=== PATIENT | male | born 1950 | race Caucasian/White ===

== ENCOUNTER 2020-10-05 05:59 | Outpatient (RCR) | payer BC, MEDICARE ==
[~2020-10-05] VITALS: Ht 185.5 cm; Wt 90.8 kg
[~2020-10-05 05:59] MED LIST: ASPI-892 PO; Atorvastatin Calcium PO; CARV3.12T PO; CLPD75T PO; FENO134C2 PO; Famotidine PO; GEMF600T3 PO; GLIP10TA13 PO; LIRA0.6P3 SC; LISI1TAB78 PO; LORA10CA PO; NITR12SP6 SL; RABE20TA27 PO; VARD20TA30 PO
== END 2020-10-05 14:08 | disposition home or self-care (01) ==
LOC: PREOP 05:59
PROVIDERS: ATTEND Surgery
DX: Z01.812 Encounter for preprocedural laboratory examination (principal); Z12.11 Encounter for screening for malignant neoplasm of colon; Z20.822 Contact with and (suspected) exposure to COVID-19; Z80.0 Family history of malignant neoplasm of digestive organs
CPT/HCPCS: 87635

== ENCOUNTER 2020-10-07 08:52 | Day surgery (SDC) | payer MEDICARE, OTHER ==
[2020-10-07] VITALS (7 sets, daily range): BP systolic 82–160; BP diastolic 56–84
[~2020-10-07] VITALS: Ht 185.5 cm; Wt 90.8 kg
[2020-10-07] MEDS ORDERED: LACTATED RINGERS 1,000 ML IV STA (09:05)
[2020-10-07] MEDS ORDERED: LACTATED RINGERS 1,000 ML IV ONE (09:05)
[2020-10-07] MEDS ORDERED: LIDOCAINE JELLY 2% 6 ML SYRINGE MM PRN (09:15)
[2020-10-07] MEDS ORDERED: MIDAZOLAM 2 MG/2 ML (VERSED) VIAL ONE (09:19)
[2020-10-07] MEDS ORDERED: PROPOFOL INJECTION 50 ML IV ONE (09:19)
[2020-10-07] MEDS ORDERED: LIDOCAINE JELLY 2% 6 ML SYRINGE ONE (10:06)
--- NOTE | 2020-10-07 10:14 | Progress Note-Pre Operative ---
Pre-Operative Progress Note H&P Reviewed The H&P was reviewed, patient examined and no changes noted. Date Seen by Provider: Oct 07, 2020 Time Seen by Provider: 10:00 Date H&P Reviewed: Oct 07, 2020 Time H&P Reviewed: 10:00 Pre-Operative Diagnosis: screening, family hx colon ca MARIA DEL CARMEN CHURCH MD Oct 07, 2020 10:14
[2020-10-07] MEDS ORDERED: HYDROcodone/APAP 5 MG/325 MG (LORTAB) TAB PO PRN (10:15)
[2020-10-07] MEDS ORDERED: ACETAMINOPHEN 325 MG TABLET PO PRN (10:15)
[2020-10-07] MEDS ORDERED: ONDANSETRON 4 MG/2 ML (SDV) Z0FRAN IVP PRN (10:15)
[2020-10-07] MEDS ORDERED: morphine INJ 10 MG/ML 1ML (SYR OR VIAL) IVP PRN ×2 (10:15)
--- NOTE | 2020-10-07 10:15 | Discharge Inst-Surgical ---
D/C Lap Instructions-LYNNETTE Follow Up Activity as tolerated High Fiber Diet 25g or more per day Avoid Alcohol, Caffeine, Spicy [place] and Acid foods. Drink 64 fluid oz or more of fluids per day. Symptoms to Report: Fever over 101 degree F, Nausea/Vomiting If any problems/questions: Contact your physician or go to Emergency Room MARIA DEL CARMEN CHURCH MD Oct 07, 2020 10:15
--- NOTE | 2020-10-07 10:55 | Anesthesia-General Post-Op ---
MAC Patient Condition Mental Status/LOC: Same as Preop Cardiovascular: Satisfactory Nausea/Vomiting: Absent Respiratory: Satisfactory Pain: Controlled Complications: Absent Post Op Complications Complications None Follow Up Care/Instructions Patient Instructions None needed. Anesthesiology Discharge Order Discharge Order Patient is doing well, no complaints, stable vital signs, no apparent adverse anesthesia problems. No complications reported per nursing. WILY THOMPSON CRNA Oct 07, 2020 10:55
--- NOTE | 2020-10-07 11:02 | Progress Note-Post Operative ---
Post-Operative Progess Note Surgeon (s)/Studio Manager (s) Surgeon MARIA DEL CARMEN CHURCH MD Studio Manager: none Pre-Operative Diagnosis screening, family hx colon ca Post-Operative Diagnosis mild chronic stage 2 ext and int hemorrhoids, mild sigmoid diverticulosis. Procedure & Operative Findings Date of Procedure 10/07/20 Procedure Performed/Findings colonoscopy Anesthesia Type mac Estimated Blood Loss Estimated blood loss (mL): minimal Specimens/Packing Specimens Removed none MARIA DEL CARMEN CHURCH MD Oct 07, 2020 11:02
--- NOTE | 2020-10-07 17:01 | OPERATIVE REPORT ---
DATE OF SERVICE: 10/07/2020 ATTENDING PRIMARY MOBILE PAINT SPECIALIST: Naty Branch APRN. PREOPERATIVE DIAGNOSIS: Screening colonoscopy with family history of colon cancer. POSTOPERATIVE DIAGNOSES: Mild chronic stage II external and internal hemorrhoids, mild sigmoid diverticulosis. PROCEDURE PERFORMED: Colonoscopy. SURGEON: Maria Del Carmen Church MD. ANESTHESIA: Monitored anesthesia care. ESTIMATED BLOOD LOSS: Minimal. FINDINGS: Mild chronic stage II external and internal hemorrhoids, mild sigmoid diverticulosis. DISPOSITION: The patient tolerated the procedure well. INDICATIONS FOR PROCEDURE: The patient is a 69-year-old male in need of a screening colonoscopy. He states that he is doing well and does not report any major issues with diarrhea nor constipation as well as no red blood per rectum nor any dark tarry stools. He does have a family history of colon cancer with his mother having the disease. DESCRIPTION OF PROCEDURE: The patient was brought to the endoscopy suite and laid in the left lateral decubitus position. After adequate IV pain and sedative medications and monitored anesthesia care. A digital rectal examination was performed, which revealed mild chronic stage II external and internal hemorrhoids, not actively edematous nor inflamed and no bleeding. Normal suture tone was felt and there were no palpable masses. Prostate gland was palpable and appeared normal. The endoscope was then intubated to the anus and rectum gently insufflated. The endoscope was then advanced to the valves of [place] of the rectum with no polyps or any neoplasms identified. The endoscope was then advanced through the sigmoid colon, where a mild sigmoid diverticulosis was identified. The endoscope was then advanced in the mid of the descending, transverse and ascending colon to the cecum. These segments were normal. There were no polyps or any neoplasms identified throughout the colon or rectum. Endoscope was then slowly withdrawn while taking a second look and suctioning of residual air with no additional findings. The patient tolerated the procedure well. We will recommend continued medical management with a high fiber diet with at least 30 grams of fiber daily as well as significant amounts of water to promote soft stools on a daily basis. Due to his first-degree family history of colon cancer, we will recommend a followup colonoscopy approximately every five years. Job ID: [id number] DocumentID: [id number] Dictated Date: 10/07/2020 10:46:59 Tool Supervisor Date: 10/07/2020 17:00:56 Dictated By: MARIA DEL CARMEN CHURCH MD
== END 2020-10-07 11:35 | disposition home or self-care (01) ==
LOC: ENDO 08:52
PROVIDERS: ATTEND Surgery
DX: Z12.11 Encounter for screening for malignant neoplasm of colon (principal); K64.1 Second degree hemorrhoids; K57.30 Diverticulosis of large intestine without perforation or abscess without bleeding; I10 Essential (primary) hypertension; I25.10 Atherosclerotic heart disease of native coronary artery without angina pectoris; E11.9 Type 2 diabetes mellitus without complications; K21.9 Gastro-esophageal reflux disease without esophagitis; Z79.899 Other long term (current) drug therapy; Z95.5 Presence of coronary angioplasty implant and graft; Z80.0 Family history of malignant neoplasm of digestive organs
CPT/HCPCS: 82962; G0105

== ENCOUNTER 2021-01-15 16:11 | Emergency (ER) | payer MEDICARE, OTHER ==
[~2021-01-15] VITALS: Ht 185 cm; Wt 100.0 kg
[2021-01-15] MEDS ORDERED: KETOROLAC 30 MG/ML VIAL IVP ONE (16:30)
[2021-01-15] MEDS ORDERED: NS IV 1000 ML 1,000 ML IV SCH (16:30)
[2021-01-15] MEDS ORDERED: fentaNYL INJ 100 MCG/2 ML AMP IVP ONE (16:30)
--- NOTE | 2021-01-15 16:30 | ED GU-Male ---
General Chief Complaint: Abdominal/GI Problems Stated Complaint: ABD/BACK PAIN POSSIBLE KIDNEY STONE Source: patient Exam Limitations: no limitations History of Present Illness Date Seen by Provider: January 15, 2021 Time Seen by Provider: 16:29 Initial Comments To ER with suprapubic abdominal pain sudden onset about 2 PM today. He also had some left flank pain. He felt the urge to urinate but was unable to do so. History of kidney stone on the left side a couple years ago. Timing/Duration: just prior to arrival Severity/Quality: moderate Location: suprapubic, left flank Radiation: none Activities at Onset: none Prior Genitourinary Problems: none Allergies and Home Medications Allergies Coded Allergies: No Known Drug Allergies (Unverified , 12/27/10) Home Medications Carvedilol 3.125 Mg Tablet, 6.25 MG PO BID Prescribed by: JOHANNA AL on 11/14/142018 Cefuroxime Axetil 250 Mg Tablet, 250 MG PO BID Prescribed by: JANE INTERIANO on 01/15/211656 Fenofibrate,Micronized 134 Mg Capsule, 134 MG PO HS Prescribed by: JOHANNA AL on 11/14/142018 Glipizide 10 Mg Tablet, 20 MG PO BID, (Reported) TAKES 2 (10MG) TABLETS Ibuprofen 800 Mg Tablet, 800 MG PO Q8H PRN for PAIN Prescribed by: JANE INTERIANO on 01/15/211656 Lisinopril/Hydrochlorothiazide 1 Tab Tablet, 1 TAB PO DAILY, (Reported) Loratadine 10 Mg Capsule, 10 MG PO DAILY, (Reported) Nitroglycerin 12 Gm Hitchcock, 12 GM SL NEEDED PRN for CHEST PAIN one sublingual spray q 5 minutes prn chest pain. Prescribed by: JOHANNA AL on 11/14/142010 Ondansetron 8 Mg Tab.rapdis, 8 MG PO Q6H PRN for NAUSEA/VOMITING Prescribed by: JANE INTERIANO on 01/15/211656 Oxycodone HCl/Acetaminophen 1 Each Tablet, 1 TAB PO Q4H Prescribed by: JANE INTERIANO on 01/15/211657 Rabeprazole Sodium 20 Mg Tablet.dr, 20 MG PO DAILY, (Reported) Tamsulosin HCl 0.4 Mg Cap, 0.4 MG PO DAILY Prescribed by: JANE INTERIANO on 01/15/211656 [Atorvastatin Calcium] 80 MG TABLET, 80 MG PO HS Prescribed by: JOHANNA AL on 11/14/142018 [Famotidine] 20 MG TABLET, 20 MG PO BID Prescribed by: JOHANNA AL on 11/14/142018 Patient Home Medication List Home Medication List Reviewed: Yes Review of Systems Review of Systems Constitutional: see HPI EENTM: see HPI Respiratory: no symptoms reported Cardiovascular: no symptoms reported Genitourinary: see HPI, flank pain Musculoskeletal: no symptoms reported Skin: no symptoms reported Psychiatric/Neurological: No Symptoms Reported Endocrine: No Symptoms Reported Hematologic/Lymphatic: No Symptoms Reported Past Stctdiy-Oaymcu-Jpcnwf Hx Patient Social History 2nd Hand Smoke Exposure: No Recent Hopitalizations: No Immunizations Up To Date Tetanus Booster (TDap): More than 5yrs PED Vaccines UTD: No Date of Pneumonia Vaccine: Nov 12, 2014 Date of Influenza Vaccine: Jun 09, 2020 Seasonal Allergies Seasonal Allergies: No Past Medical History Surgeries: Yes (HEART STENTS) Eye Surgery, Prostatectomy Respiratory: No Cardiac: Yes Coronary Artery Disease, High Cholesterol, Hypertension Neurological: No Reproductive Disorders: No Sexually Transmitted Disease: No HIV/AIDS: No Gastrointestinal: Yes Gastroesophageal Reflux Musculoskeletal: No Endocrine: Yes Diabetes, Non-Insulin dep Cancer: Yes Prostate Psychosocial: No Integumentary: No Blood Disorders: No Adverse Reaction/Blood Tranf: No Family Medical History Arthritis 19 MOTHER, Onset:60 years & older Cardiovascular disease 19 MOTHER, Onset:60 years & older Colon cancer Completed stroke G8 BROTHER, Onset:50's - 60 (Brother from stroke) Hypertension 19 MOTHER, Onset:60 years & older Prostate cancer 19 FATHER, Onset:60 years & older Visual disorder 19 FATHER, Onset:60 years & older (Macular degeneration) CAD Over 55 Years Old Physical Exam Vital Signs Vital Signs - First Documented 01/15/21 01/15/21 16:30 16:58 Temp 36.2 Pulse 80 Resp 16 B/P (MAP) 169/78 (108) Pulse Ox 98 O2 Delivery Room Air Capillary Refill : Height, Weight, BMI Height: 6'1.00" Weight: 251lbs. 9.0oz. [id number]; 26.38 BMI Method: General Appearance: WD/WN, no apparent distress Neck: non-tender, full range of motion Respiratory: no respiratory distress, no accessory muscle use Gastrointestinal: normal bowel sounds, soft, tenderness (Left lower) Neurologic/Psychiatric: alert, normal mood/affect, oriented x 3 Skin: normal color, warm/dry Progress/Results/Core Measures Suspected Sepsis SIRS Temperature: Pulse: Respiratory Rate: Laboratory Tests 01/15/21 16:25: White Blood Count 8.4 Blood Pressure / Mean: Laboratory Tests 01/15/21 16:25: Creatinine 0.93, Platelet Count 209, Total Bilirubin 0.5 Results/Orders Lab Results Laboratory Tests Test 01/15/21 16:25 Range/Units White Blood Count 8.4 4.3-11.0 10^3/uL Red Blood Count 4.69 4.30-5.52 10^6/uL Hemoglobin 15.3 13.3-17.7 g/dL Hematocrit 45 40-54 % Mean Corpuscular Volume 96 80-99 fL Mean Corpuscular Hemoglobin 33 25-34 pg Mean Corpuscular Hemoglobin Concent 34 32-36 g/dL Red Cell Distribution Width 12.6 10.0-14.5 % Platelet Count 209 130-400 10^3/uL Mean Platelet Volume 9.9 9.0-12.2 fL Immature Granulocyte % (Auto) 0 % Neutrophils (%) (Auto) 68 42-75 % Lymphocytes (%) (Auto) 20 12-44 % Monocytes (%) (Auto) 11 0-12 % Eosinophils (%) (Auto) 1 0-10 % Basophils (%) (Auto) 1 0-10 % Neutrophils # (Auto) 5.7 1.8-7.8 10^3/uL Lymphocytes # (Auto) 1.7 1.0-4.0 10^3/uL Monocytes # (Auto) 0.9 0.0-1.0 10^3/uL Eosinophils # (Auto) 0.1 0.0-0.3 10^3/uL Basophils # (Auto) 0.1 0.0-0.1 10^3/uL Immature Granulocyte # (Auto) 0.0 0.0-0.1 10^3/uL Sodium Level 140 135-145 MMOL/L Potassium Level 4.6 3.6-5.0 MMOL/L Chloride Level 103 98-107 MMOL/L Carbon Dioxide Level 27 21-32 MMOL/L Anion Gap 10 5-14 MMOL/L Blood Urea Nitrogen 17 7-18 MG/DL Creatinine 0.93 0.60-1.30 MG/DL Estimat Glomerular Filtration Rate > 60 BUN/Creatinine Ratio 18 Glucose Level 127 H 70-105 MG/DL Calcium Level 9.4 8.5-10.1 MG/DL Corrected Calcium 9.2 8.5-10.1 MG/DL Total Bilirubin 0.5 0.1-1.0 MG/DL Aspartate Amino Transf (AST/SGOT) 20 5-34 U/L Alanine Aminotransferase (ALT/SGPT) 19 0-55 U/L Alkaline Phosphatase 69 40-136 U/L Total Protein 6.9 6.4-8.2 GM/DL Albumin 4.3 3.2-4.5 GM/DL My Orders Orders - JANE INTERIANO APRN Cbc With Automated Diff (01/15/21 16:27) Comprehensive Metabolic Panel (01/15/21 16:27) Ua Culture If Indicated (01/15/21 16:27) Ed Iv/Invasive Line Start (01/15/21 16:27) Ct Abd/Pelvis Wo(Kidney Stone) (01/15/21 16:27) Abdomen/Kub 1view (01/15/21 16:27) Ns Iv 1000 Ml (Sodium Chloride 0.9%) (01/15/21 16:30) Ketorolac Injection (Toradol Injection) (01/15/21 16:30) Fentanyl Inj (Sublimaze Injection) (01/15/21 16:30) Medications Given in ED Current Medications Medications Dose Ordered Sig/Maico Route Start Time Stop Time Status Last Admin Dose Admin Fentanyl Citrate 50 mcg ONCE ONCE IVP 01/15/21 16:30 01/15/21 16:31 DC 01/15/21 16:36 50 MCG Ketorolac Tromethamine 15 mg ONCE ONCE IVP 01/15/21 16:30 01/15/21 16:31 DC 01/15/21 16:36 15 MG Vital Signs/I&O 01/15/21 01/15/21 16:30 16:58 Temp 36.2 36.2 Pulse 80 Resp 16 B/P (MAP) 169/78 (108) Pulse Ox 98 98 O2 Delivery Room Air Capillary Refill : Diagnostic Imaging Diagonstic Imaging: CT Comments NAME: ALTHEA VARGAS [facility] REC#: [id number] PT STATUS: REG ER : 1950 PHYSICIAN: JANE INTERIANO TRIAGE RN ADMIT DATE: 01/15/21/ER Draft Date of Exam:01/15/21 CT ABD/PELVIS WO(KIDNEY STONE) PROCEDURE: CT urinary tract, rule out kidney stone. TECHNIQUE: Multiple contiguous axial images were obtained through the abdomen and pelvis without the use of intravenous contrast. Auto Exposure Controls were utilized during the CT exam to meet ALARA standards for radiation dose reduction. INDICATION: Left flank pain. COMPARISON: 11/14/2007 FINDINGS: Pacer leads are partially visualized. The visualized lung bases are clear. The unenhanced liver, spleen, adrenal glands, pancreas, and gallbladder are unremarkable. Indeterminate hypodensities are identified within the right kidney. These appear to have been present in 2007, though minimally increased in size since that time, including a 1.4 cm hypodensity within the superior pole of the right kidney. A 2.2 cm calculus is noted within the left renal pelvis. Additional 0.7 cm calculus within the inferior pole of the left kidney. There is a 0.5 cm calculus within the left ureterovesicular junction. There is resulting mild left hydroureteronephrosis. The right ureter is unremarkable. Moderate vascular calcifications within the abdominal aorta and its branch vessels without aneurysmal dilatation of the abdominal aorta. The appendix is unremarkable. The urinary bladder is predominantly decompressed though otherwise unremarkable. Mild colonic diverticulosis without CT evidence of diverticulitis. No bowel obstruction or pneumatosis. No significant adenopathy, free air, or free fluid within the abdomen or pelvis. Small fat-containing left inguinal hernia. Scattered osseous degenerative changes without acute osseous abnormality. There is resulting multilevel central canal stenosis within the lower lumbar spine. IMPRESSION: 0.5 cm calculus within the left ureterovesicular junction resulting in mild left hydroureteronephrosis. Additional left-sided renal calculi, including a large 2.2 cm calculus within the left renal pelvis. Indeterminate hypodensities within the right kidney. These have minimally increased in size since 2007 suggesting a nonaggressive process. Additional findings as above. Dictated on workstation # [id number] Dict: 01/15/21 1705 Trans: 01/15/21 1728 [facility] [id number] Interpreted by: TODD PARKER MD Electronically signed by: Departure Impression Primary Impression: Left ureteral stone Disposition: 01 HOME, SELF-CARE Condition: Stable Departure-Patient Inst. Decision time for Depature: 16:30 Referrals: [facility] (PCP) Primary Care Physician LOKESH GARCIA APRN (Family) Primary Care Physician LAURA URBINA MD Patient Instructions: Kidney Stones (DC) Add. Discharge Instructions: 1. Take the medication as directed. Return to ER for any intolerable pain or fevers All discharge instructions reviewed with patient and/or family. Voiced understanding. Scripts Tamsulosin HCl (Flomax) 0.4 Mg Cap 0.4 MG PO DAILY, #10 CAP Prov: JANE INTERIANO APRN 01/15/21 Oxycodone HCl/Acetaminophen (Percocet 5-325 mg Tablet) 1 Each Tablet 1 TAB PO Q4H for PAIN-MODERATE MDD 6 TABS for 7 Days, #20 TAB Prov: JANE INTERIANO APRN 01/15/21 Ibuprofen (Ibuprofen) 800 Mg Tablet 800 MG PO Q8H PRN for PAIN, #30 TAB 0 Refills Prov: JANE INTERIANO APRN 01/15/21 Ondansetron (Ondansetron Odt) 8 Mg Tab.rapdis 8 MG PO Q6H PRN for NAUSEA/VOMITING, #10 TAB Prov: JANE INTERIANO APRN 01/15/21 Cefuroxime Axetil (Cefuroxime) 250 Mg Tablet 250 MG PO BID, #10 TAB Prov: JANE INTERIANO APRN 01/15/21 Copy Copies To 1: LAURA URBINA MD, PETER J APRN January 15, 2021 16:30
[2021-01-15 16:33] LABS: BASOPHILS # (AUTO) 0.1 10^3/uL (0.0-0.1); BASOPHILS % (AUTO) 1 % (0-10); EOSINOPHILS # (AUTO) 0.1 10^3/uL (0.0-0.3); EOSINOPHILS % (AUTO) 1 % (0-10); HEMATOCRIT 45 % (40-54); HEMOGLOBIN 15.3 g/dL (13.3-17.7); LYMPHOCYTES # (AUTO) 1.7 10^3/uL (1.0-4.0); LYMPHOCYTES % (AUTO) 20 % (12-44); MEAN CORPUSCULAR HEMOGLOBIN 33 pg (25-34); MEAN CORPUSCULAR HGB CONC 34 g/dL (32-36); MEAN CORPUSCULAR VOLUME 96 fL (80-99); MEAN PLATELET VOLUME 9.9 fL (9.0-12.2); MONOCYTES # (AUTO) 0.9 10^3/uL (0.0-1.0); MONOCYTES % (AUTO) 11 % (0-12); NEUTROPHILS # (AUTO) 5.7 10^3/uL (1.8-7.8); NEUTROPHILS % (AUTO) 68 % (42-75); PLATELET COUNT 209 10^3/uL (130-400); WHITE BLOOD COUNT 8.4 10^3/uL (4.3-11.0)
[2021-01-15 16:41] LABS: ALBUMIN 4.3 GM/DL (3.2-4.5)
[2021-01-15 16:42] LABS: CHLORIDE 103 MMOL/L (98-107); POTASSIUM 4.6 MMOL/L (3.6-5.0); SODIUM 140 MMOL/L (135-145)
[2021-01-15 16:43] LABS: CALCIUM 9.4 MG/DL (8.5-10.1)
[2021-01-15 16:44] LABS: GLUCOSE 127 MG/DL (70-105); TOTAL PROTEIN 6.9 GM/DL (6.4-8.2)
[2021-01-15 16:45] LABS: CARBON DIOXIDE 27 MMOL/L (21-32)
[2021-01-15 16:46] LABS: BILIRUBIN,TOTAL 0.5 MG/DL (0.1-1.0)
[2021-01-15 16:48] LABS: ALKALINE PHOSPHATASE 69 U/L (40-136); CREATININE SERUM 0.93 MG/DL (0.60-1.30); GFR ESTIMATED > 60
[2021-01-15 16:49] LABS: BUN/CREATININE RATIO 18
[2021-01-15 16:51] LABS: ALANINE AMINOTRANSFERASE 19 U/L (0-55)
[2021-01-15] MEDS ORDERED: CEFU250T80 PO (16:57)
[2021-01-15] MEDS ORDERED: TMSL.4C PO (16:57)
[2021-01-15] MEDS ORDERED: OXYC1TAB87 PO (16:57)
[2021-01-15] MEDS ORDERED: IBUP-1780 PO (16:57)
[2021-01-15] MEDS ORDERED: ONDA8TAB13 PO (16:57)
--- NOTE | 2021-01-15 17:16 | Diagnostic Imaging Report ---
INDICATION: Left flank pain, history of prostate and lung cancer. History of nephrolithiasis. TECHNIQUE: Two supine views of the abdomen, 4:56 p.m. CORRELATION STUDY: CT abdomen and pelvis 01/15/2021. FINDINGS: Large triangular shape 2.4 cm calcification in the left upper quadrant. Additional small calcification of 5 mm potential inferior pole left kidney. No definitive desiccation on the right renal silhouette. 5 mm calcification in the left hemipelvis does correspond to a probable distal left ureteral calcification. Overlying bowel gas pattern is nonobstructive. IMPRESSION: Multiple calcifications over left renal silhouette. Small calcification of the left hemipelvis favors probable distal ureteral stone. Dictated by: Dictated on workstation # [id number]
--- NOTE | 2021-01-15 17:28 | Diagnostic Imaging Report ---
PROCEDURE: CT urinary tract, rule out kidney stone. TECHNIQUE: Multiple contiguous axial images were obtained through the abdomen and pelvis without the use of intravenous contrast. Auto Exposure Controls were utilized during the CT exam to meet ALARA standards for radiation dose reduction. INDICATION: Left flank pain. COMPARISON: 11/14/2007 FINDINGS: Pacer leads are partially visualized. The visualized lung bases are clear. The unenhanced liver, spleen, adrenal glands, pancreas, and gallbladder are unremarkable. Indeterminate hypodensities are identified within the right kidney. These appear to have been present in 2007, though minimally increased in size since that time, including a 1.4 cm hypodensity within the superior pole of the right kidney. A 2.2 cm calculus is noted within the left renal pelvis. Additional 0.7 cm calculus within the inferior pole of the left kidney. There is a 0.5 cm calculus within the left ureterovesicular junction. There is resulting mild left hydroureteronephrosis. The right ureter is unremarkable. Moderate vascular calcifications within the abdominal aorta and its branch vessels without aneurysmal dilatation of the abdominal aorta. The appendix is unremarkable. The urinary bladder is predominantly decompressed though otherwise unremarkable. Mild colonic diverticulosis without CT evidence of diverticulitis. No bowel obstruction or pneumatosis. No significant adenopathy, free air, or free fluid within the abdomen or pelvis. Small fat-containing left inguinal hernia. Scattered osseous degenerative changes without acute osseous abnormality. There is resulting multilevel central canal stenosis within the lower lumbar spine. IMPRESSION: 0.5 cm calculus within the left ureterovesicular junction resulting in mild left hydroureteronephrosis. Additional left-sided renal calculi, including a large 2.2 cm calculus within the left renal pelvis. Indeterminate hypodensities within the right kidney. These have minimally increased in size since 2007 suggesting a nonaggressive process. Additional findings as above. Dictated by: Dictated on workstation # [id number]
[2021-01-15 17:54] LABS: BILIRUBIN,URINE NEGATIVE (NEGATIVE); CLARITY,URINE CLEAR; COLOR,URINE YELLOW; GLUCOSE, URINE (UA) NEGATIVE (NEGATIVE); KETONES,URINE TRACE (NEGATIVE); LEUKOCYTE ESTERASE ,URINE NEGATIVE (NEGATIVE); NITRITE,URINE NEGATIVE (NEGATIVE); PROTEIN,URINE NEGATIVE (NEGATIVE)
[2021-01-15 18:01] LABS: BACTERIA,URINE NEGATIVE /HPF; RBC,URINE >100 /HPF
[2021-01-15 18:02] LABS: SQUAMOUS EPITHELIAL CELL,UR RARE /HPF
[2021-01-15 18:10] VITALS: BP 112/80
== END 2021-01-15 18:10 | disposition home or self-care (01) ==
LOC: EDUNIT# 16:11 → ER 16:12
DX: N13.2 Hydronephrosis with renal and ureteral calculous obstruction (principal); I10 Essential (primary) hypertension; E11.9 Type 2 diabetes mellitus without complications; I25.10 Atherosclerotic heart disease of native coronary artery without angina pectoris; E78.00 Pure hypercholesterolemia, unspecified; K21.9 Gastro-esophageal reflux disease without esophagitis; Z95.5 Presence of coronary angioplasty implant and graft; Z79.84 Long term (current) use of oral hypoglycemic drugs; Z79.899 Other long term (current) drug therapy
CPT/HCPCS: 36415; 74018; 74176; 80053; 81000; 85025

== ENCOUNTER → 2021-01-18 | Outpatient (CLI) | payer MEDICARE, OTHER ==
[~2021-01-18] MED LIST changes: +CEFU250T80 PO; +IBUP-1780 PO; +ONDA8TAB13 PO; +OXYC1TAB87 PO; +TMSL.4C PO
--- NOTE | 2021-01-18 14:08 | Diagnostic Imaging Report ---
Indication: Left renal stone. Time of exam: 1:46 PM Correlation is made with prior radiograph from 3 days earlier. A previously noted calculi overlying the left renal shadow are again noted. It appeared to be in a similar position. The left pelvic calculus is no longer visualized and has likely passed. Right-sided urinary tracts are unremarkable. Bowel gas pattern is unremarkable. IMPRESSION: Stable left renal calculi. Previous noted left pelvic calculus in the expected location of the distal left ureter is no longer visualized, has likely passed. Dictated by: Dictated on workstation # [id number]
== END ==
LOC: RAD 13:25
PROVIDERS: ATTEND Urology
DX: N20.0 Calculus of kidney (principal)
CPT/HCPCS: 74018

== ENCOUNTER 2021-02-22 20:35 | Observation (INO) | payer MEDICARE, OTHER ==
[~2021-02-22] VITALS: Ht 73 cm; Wt 93.0 kg
--- NOTE | 2021-02-22 20:48 | ED General ---
General Stated Complaint: FALL - CHIN LAC Source of Information: Patient Exam Limitations: No Limitations History of Present Illness Date Seen by Provider: Feb 22, 2021 Time Seen by Provider: 20:44 Initial Comments To ER by private vehicle with reports of a chin laceration. Patient states that he took Viagra, they "had some fun" then had some drinks. Then he stood up too quickly and passed out. Laceration to his chin and he does complain of some jaw pain. Reports that his neck is "a little sore". Laceration to the inferior midline of his chin. Tetanus is up-to-date. Also has an abrasion over the dors al aspect of the right elbow. Timing/Duration: 1/2 Hour Severity: Moderate Associated Systoms: Denies Symptoms Allergies and Home Medications Allergies Coded Allergies: No Known Drug Allergies (Unverified , 12/27/10) Home Medications Carvedilol 3.125 Mg Tablet, 6.25 MG PO BID Prescribed by: JOHANNA AL on 11/14/142018 Cefuroxime Axetil 250 Mg Tablet, 250 MG PO BID Prescribed by: JANE MAURICIO on 01/15/211656 Fenofibrate,Micronized 134 Mg Capsule, 134 MG PO HS Prescribed by: JOHANNA AL on 11/14/142018 Glipizide 10 Mg Tablet, 20 MG PO BID, (Reported) TAKES 2 (10MG) TABLETS Ibuprofen 800 Mg Tablet, 800 MG PO Q8H PRN for PAIN Prescribed by: JANE MAURICIO on 01/15/211656 Lisinopril/Hydrochlorothiazide 1 Tab Tablet, 1 TAB PO DAILY, (Reported) Loratadine 10 Mg Capsule, 10 MG PO DAILY, (Reported) Nitroglycerin 12 Gm Roberts, 12 GM SL NEEDED PRN for CHEST PAIN one sublingual spray q 5 minutes prn chest pain. Prescribed by: JOHANNA AL on 11/14/142010 Ondansetron 8 Mg Tab.rapdis, 8 MG PO Q6H PRN for NAUSEA/VOMITING Prescribed by: JANE MAURICIO on 01/15/211656 Oxycodone HCl/Acetaminophen 1 Each Tablet, 1 TAB PO Q4H Prescribed by: JANE MAURICIO on 01/15/211657 Rabeprazole Sodium 20 Mg Tablet.dr, 20 MG PO DAILY, (Reported) Tamsulosin HCl 0.4 Mg Cap, 0.4 MG PO DAILY Prescribed by: JANE MAURICIO on 01/15/211656 [Atorvastatin Calcium] 80 MG TABLET, 80 MG PO HS Prescribed by: JOHANNA AL on 11/14/142018 [Famotidine] 20 MG TABLET, 20 MG PO BID Prescribed by: JOHANNA AL on 11/14/142018 Patient Home Medication List Home Medication List Reviewed: Yes Review of Systems Review of Systems Constitutional: see HPI EENTM: see HPI Respiratory: no symptoms reported Cardiovascular: no symptoms reported Genitourinary: no symptoms reported Musculoskeletal: no symptoms reported Skin: no symptoms reported Psychiatric/Neurological: No Symptoms Reported Hematologic/Lymphatic: No Symptoms Reported Immunological/Allergic: no symptoms reported Past Rlxjnrp-Bsgeuy-Zivfzn Hx Patient Social History 2nd Hand Smoke Exposure: No Recent Hopitalizations: No Immunizations Up To Date Tetanus Booster (TDap): More than 5yrs PED Vaccines UTD: No Date of Pneumonia Vaccine: Nov 12, 2014 Date of Influenza Vaccine: Jun 09, 2020 Seasonal Allergies Seasonal Allergies: No Past Medical History Surgeries: Yes (HEART STENTS) Eye Surgery, Prostatectomy Respiratory: No Cardiac: Yes Coronary Artery Disease, High Cholesterol, Hypertension Neurological: No Reproductive Disorders: No Sexually Transmitted Disease: No HIV/AIDS: No Gastrointestinal: Yes Gastroesophageal Reflux Musculoskeletal: No Endocrine: Yes Diabetes, Non-Insulin dep Cancer: Yes Prostate Psychosocial: No Integumentary: No Blood Disorders: No Adverse Reaction/Blood Tranf: No Family Medical History Arthritis 19 MOTHER, Onset:60 years & older Cardiovascular disease 19 MOTHER, Onset:60 years & older Colon cancer Completed stroke G8 BROTHER, Onset:50's - 60 (Brother from stroke) Hypertension 19 MOTHER, Onset:60 years & older Prostate cancer 19 FATHER, Onset:60 years & older Visual disorder 19 FATHER, Onset:60 years & older (Macular degeneration) CAD Over 55 Years Old Physical Exam Vital Signs Vital Signs - First Documented 02/22/21 20:38 Temp 35.9 Pulse 79 Resp 18 B/P (MAP) 134/87 (103) Pulse Ox 95 O2 Delivery Room Air Capillary Refill : Height, Weight, BMI Height: 6'1.00" Weight: 251lbs. 9.0oz. [id number]; 29.00 BMI Method: General Appearance: No Apparent Distress, WD/WN, Other (Alert and oriented GCS 15) Eyes: Bilateral Eye Normal Inspection, Bilateral Eye PERRL, Bilateral Eye EOMI HEENT: PERRL/EOMI, TMs Normal, Other (1.5 cm laceration to the inferior midline of the mandible. Gaping by a few millimeters. This is down to the subcutaneou s tissue. There is no palpable abnormality of the jaw.) Neck: Full Range of Motion, Normal Inspection; No Tender Lateral, No Tender Midline Respiratory: No Accessory Muscle Use Gastrointestinal: Normal Bowel Sounds, Non Tender, Soft Extremity: Normal Capillary Refill, Normal Inspection Neurologic/Psychiatric: Alert, Oriented x3 Skin: Normal Color, Warm/Dry Progress/Results/Core Measures Suspected Sepsis SIRS Temperature: Pulse: Respiratory Rate: Blood Pressure / Mean: Results/Orders My Orders Orders - JANE MAURICIO APRN Ct Head/Face/Cervical Wo (02/22/21 20:43) Elbow, Right, 3 Views (02/22/21 20:43) Cbc With Automated Diff (02/22/21 21:39) Comprehensive Metabolic Panel (02/22/21 21:39) Protime With Inr (02/22/21 21:39) Vital Signs/I&O 02/22/21 20:38 Temp 35.9 Pulse 79 Resp 18 B/P (MAP) 134/87 (103) Pulse Ox 95 O2 Delivery Room Air Capillary Refill : Diagnostic Imaging Diagonstic Imaging: CT Comments NAME: AL[facility] VARGAS [facility] REC#: [id number] PT STATUS: REG ER : 1950 PHYSICIAN: JANE MAURICIO APRN ADMIT DATE: 02/22/21/ER Draft Date of Exam:02/22/21 CT HEAD/FACE/CERVICAL WO PROCEDURE: CT head, face, and cervical spine without contrast, 02/22/2021. TECHNIQUE: Multiple contiguous axial images were obtained through the head, neck, and facial bones without the use of intravenous contrast. Sagittal and coronal reformations through the cervical spine and facial bones were also performed. Auto Exposure Controls were utilized during the CT exam to meet ALARA standards for radiation dose reduction. INDICATION: Fall. Chin laceration. FINDINGS: CT BRAIN: There is a small linear hyperdensity overlying the left parietal lobe, images 31 and 32, which could represent a small subdural hematoma. The remaining brain unremarkable. No mass effect, midline shift or hydrocephalus. No acute infarct. IMPRESSION: 1. Suspected small left extra-axial subdural hematoma. CT CERVICAL SPINE: Osseous fragments adjacent to the tip of the dens appear well-corticated and most consistent with chronic findings. No acute fracture is identified. Normal height and alignment of the vertebral bodies noted. IMPRESSION: 1. No acute process within the cervical spine. CT MAXILLOFACIAL: Irregularity along the nasal bones could represent age-indeterminate fracture, nondisplaced in nature. A transverse lucency through the maxilla most likely a normal suture line. The remaining osseous structures unremarkable. Chronic disease noted within the sinuses with no air-fluid levels appreciated. IMPRESSION: 1. Incidental findings as above with no acute fractures identified other than a possible age-indeterminate nasal bone fracture, nondisplaced in nature. Pertinent findings called to Jane Mauricio APRN, by Dr. Hull at the time of dictation 9:17 PM 02/22/2021 Dictated on workstation # [id number] Dict: 02/22/212110 Trans: 02/22/212121 [facility] [id number] Interpreted by: ROSA HULL MD Electronically signed by: Departure Communication (Admissions) Procedure note: The laceration to the inferior midline aspect of the chin was anesthetized with 2 mL of 1% lidocaine with epinephrine. Wound then scrubbed with chlorhexidine/saline solution and irrigated with the same. No foreign bodies identified. 1 deep simple suture was placed using size 5-0 Monocryl. The wound edges were then brought together with a continuous suture size 5-0 Prolene. 2129-radiology called to reports a hyperdensity along the left temporal lobe that may represent a small subdural hematoma. Reviewed this with Dr. MIDDLETON, this is questionable at best. He is neurologically intact without symptoms. Discussed with Dr. Garcia on-call for trauma surgery, agrees to admit, neuro checks every 4 hours, repeat CT in the morning. Patient is not on aspirin Plavix or any other anticoagulants. Impression Primary Impression: Chin laceration Additional Impression: Abnormal CT of brain Disposition: ADMITTED INPATIENT Condition: Stable Admissions Decision to Admit Reason: Admit from ER (Trauma) Decision to Admit/Date: Feb 22, 2021 Time/Decision to Admit Time: 21:31 Departure-Patient Inst. Decision time for Depature: 20:46 Referrals: [facility] (PCP) Primary Care Physician LOKESH GARCIA APRN (Family) Primary Care Physician Patient Instructions: Laceration Repair With Stitches (DC) Add. Discharge Instructions: 1. Return to ER to have the stitches removed in about 5-7 days. You can shower letting water run over this without concern. JANE MAURICIO APRN Feb 22, 2021 20:48
--- NOTE | 2021-02-22 21:23 | Diagnostic Imaging Report ---
PROCEDURE: CT head, face, and cervical spine without contrast, 02/22/2021. TECHNIQUE: Multiple contiguous axial images were obtained through the head, neck, and facial bones without the use of intravenous contrast. Sagittal and coronal reformations through the cervical spine and facial bones were also performed. Auto Exposure Controls were utilized during the CT exam to meet ALARA standards for radiation dose reduction. INDICATION: Fall. Chin laceration. FINDINGS: CT BRAIN: There is a small linear hyperdensity overlying the left parietal lobe, images 31 and 32, which could represent a small subdural hematoma. The remaining brain unremarkable. No mass effect, midline shift or hydrocephalus. No acute infarct. IMPRESSION: 1. Suspected small left extra-axial subdural hematoma. CT CERVICAL SPINE: Osseous fragments adjacent to the tip of the dens appear well-corticated and most consistent with chronic findings. No acute fracture is identified. Normal height and alignment of the vertebral bodies noted. IMPRESSION: 1. No acute process within the cervical spine. CT MAXILLOFACIAL: Irregularity along the nasal bones could represent age-indeterminate fracture, nondisplaced in nature. A transverse lucency through the maxilla most likely a normal suture line. The remaining osseous structures unremarkable. Chronic disease noted within the sinuses with no air-fluid levels appreciated. IMPRESSION: 1. Incidental findings as above with no acute fractures identified other than a possible age-indeterminate nasal bone fracture, nondisplaced in nature. Pertinent findings called to Vijay Mauricio APRN, by Dr. Hull at the time of dictation 9:17 PM 02/22/2021 Dictated by: Dictated on workstation # [id number]
--- NOTE | 2021-02-22 21:26 | Diagnostic Imaging Report ---
INDICATION: Fall EXAMINATION: Right elbow from 02/22/2021 3 views of the elbow FINDINGS: There is no evidence for an acute fracture or dislocation. The joint spaces are well maintained. There is no significant soft tissue swelling. IMPRESSION: No acute process. Dictated by: Dictated on workstation # [id number]
[2021-02-22 22:12] LABS: BASOPHILS % (AUTO) 0 % (0-10); EOSINOPHILS # (AUTO) 0.1 10^3/uL (0.0-0.3); EOSINOPHILS % (AUTO) 2 % (0-10); HEMATOCRIT 43 % (40-54); HEMOGLOBIN 14.7 g/dL (13.3-17.7); LYMPHOCYTES # (AUTO) 1.7 10^3/uL (1.0-4.0); LYMPHOCYTES % (AUTO) 28 % (12-44); MEAN CORPUSCULAR HEMOGLOBIN 33 pg (25-34); MEAN CORPUSCULAR HGB CONC 34 g/dL (32-36); MEAN CORPUSCULAR VOLUME 97 fL (80-99); MEAN PLATELET VOLUME 9.6 fL (9.0-12.2); MONOCYTES # (AUTO) 0.6 10^3/uL (0.0-1.0); MONOCYTES % (AUTO) 9 % (0-12); NEUTROPHILS # (AUTO) 3.8 10^3/uL (1.8-7.8); NEUTROPHILS % (AUTO) 61 % (42-75); PLATELET COUNT 187 10^3/uL (130-400); WHITE BLOOD COUNT 6.1 10^3/uL (4.3-11.0)
[2021-02-22 22:20] LABS: ALBUMIN 3.9 GM/DL (3.2-4.5); CHLORIDE 106 MMOL/L (98-107); SODIUM 139 MMOL/L (135-145)
[2021-02-22 22:21] LABS: CALCIUM 8.8 MG/DL (8.5-10.1)
[2021-02-22 22:22] LABS: GLUCOSE 231 MG/DL (70-105)
[2021-02-22 22:23] LABS: INR 0.9 (0.8-1.4); PROTHROMBIN TIME PATIENT 12.9 SEC (12.2-14.7); TOTAL PROTEIN 6.6 GM/DL (6.4-8.2)
[2021-02-22 22:24] LABS: BILIRUBIN,TOTAL 0.3 MG/DL (0.1-1.0); CARBON DIOXIDE 21 MMOL/L (21-32)
[2021-02-22 22:26] LABS: ALKALINE PHOSPHATASE 76 U/L (40-136); CREATININE SERUM 0.86 MG/DL (0.60-1.30); GFR ESTIMATED > 60
[2021-02-22 22:27] LABS: BUN/CREATININE RATIO 16
[2021-02-22 22:29] LABS: ALANINE AMINOTRANSFERASE 18 U/L (0-55)
[2021-02-22 22:33] VITALS: BP 150/55
[2021-02-22] MEDS ORDERED: CATHETER FLUSH 10 ML SYR IV PRN (23:15)
[2021-02-22 23:50] VITALS: BP 135/76
[2021-02-23 03:33] VITALS: BP 142/75
[2021-02-23] MEDS ORDERED: CATHETER FLUSH 10 ML SYR IV SCH (06:00)
[2021-02-23 08:00] VITALS: BP 163/87
--- NOTE | 2021-02-23 08:09 | Diagnostic Imaging Report ---
PROCEDURE: CT head without contrast. TECHNIQUE: Multiple contiguous axial images were obtained through the brain without the use of intravenous contrast. Auto Exposure Controls were utilized during the CT exam to meet ALARA standards for radiation dose reduction. INDICATION: Fall with head injury. CT HEAD: CT images of the head were obtained. FINDINGS: Ventricles and sulci are within normal limits for size. There is no intracranial hemorrhage identified. There is no abnormal mass effect or shift of midline structures. IMPRESSION: Unremarkable CT of the head. Dictated by: Dictated on workstation # [id number]
--- NOTE | 2021-02-23 08:18 | History & Physical-Surgical ---
History of Present Illness History of Present Illness Reason for visit/HPI Chief complaint fall Patient is 70-year-old male who states that he took Viagra and then had sex when they are done he had a couple alcoholic drinks. Patient then soon after got up and passed out for a split second but he fell striking his chin. Patient woke up to having some blood around his face. Patient states that everything was back to normal at that point. He had a little bit of neck neck discomfort at that time and went to the emergency department for further evaluation. Patient had a laceration that was repaired in the emergency department. He had CT head neck and maxillofacial performed which demonstrated old nasal bone fracture but also a question of a left-sided extra-axial subdural hematoma. Patient was neurologically intact but was admitted for observation. Patient denies any new complaints. Denies any nausea vomiting fever sweats chills shortness of breath or chest pain. Date of Admission Feb 22, 2021 at 21:38 Date Seen by a Provider: Feb 23, 2021 Time Seen by a Provider: 08:18 I consulted on this patient on 02/23/21 08:18 Attending Physician Harman Garcia DO Admitting Physician [facility] Consult Allergies and Home Medications Allergies Coded Allergies: No Known Drug Allergies (Unverified , 12/27/10) Home Medications Carvedilol 25 Mg Tablet, 25 MG PO BID, (Reported) Last Action: Reviewed Cholecalciferol (Vitamin D3) 25 Mcg Capsule, 25 MCG PO DAILY, (Reported) Last Action: Reviewed Cyanocobalamin (Vitamin B-12) 1,000 Mcg Tablet, 1,000 MCG PO DAILY, (Reported) Last Action: Reviewed Famotidine 20 Mg Tablet, 20 MG PO 1800 W/ DINNER, (Reported) Last Action: Reviewed Glipizide 10 Mg Tablet, 10 MG PO BID, (Reported) Last Action: Reviewed Lisinopril 10 Mg Tablet, 10 MG PO DAILY, (Reported) Last Action: Reviewed Loratadine 10 Mg Tablet, 10 MG PO DAILY PRN for ALLERGY SYMPTOMS, (Reported) Last Action: Reviewed Lutein 40 Mg Capsule, 40 MG PO DAILY, (Reported) Last Action: Reviewed Multivitamin 1 Each Tablet, 1 EACH PO DAILY, (Reported) Last Action: Reviewed [place]-3 Fatty Acids/Fish Oil 1 Each Capsule, 1 EACH PO DAILY, (Reported) Last Action: Reviewed Sildenafil Citrate 100 Mg Tablet, 100 MG PO UD PRN for ED, (Reported) Last Action: Reviewed Patient Home Medication List Home Medication List Reviewed: Yes Past Rzmhteg-Unrvrc-Rwcjxw Hx Patient Social History Smoking Status: Never a Smoker 2nd Hand Smoke Exposure: No Recent Hopitalizations: No Alcohol Use?: Yes Have you traveled recently?: No Immunizations Up To Date Tetanus Booster (TDap): More than 5yrs PED Vaccines UTD: No Date of Pneumonia Vaccine: Nov 12, 2014 Date of Influenza Vaccine: Jun 09, 2020 Seasonal Allergies Seasonal Allergies: No Surgeries History of Surgeries: Yes (HEART STENTS) Surgeries: Eye Surgery, Prostatectomy Respiratory History of Respiratory Disorde: No Cardiovascular History of Cardiac Disorders: Yes Cardiac Disorders: Coronary Artery Disease, High Cholesterol, Hypertension Neurological History of Neurological Disord: No Reproductive System Hx Reproductive Disorders: No Sexually Transmitted Disease: No HIV/AIDS: No Gastrointestinal History of Gastrointestinal Di: Yes Gastrointestinal Disorders: Gastroesophageal Reflux Musculoskeletal History of Musculoskeletal Dis: No Endocrine History of Endocrine Disorders: Yes Endocrine Disorders: Diabetes, Non-Insulin dep Cancer History of Cancer: Yes Cancer: Prostate Psychosocial History of Psychiatric Problem: No Integumentary History of Skin or Integumenta: No Blood Transfusions History of Blood Disorders: No Adverse Reaction to a Blood Tr: No Reviewed Nursing Assessment Reviewed/Agree w Nursing PMH: Yes Family Medical History Significant Family History: CAD Over 55 Years Old Family Medial History: Arthritis 19 MOTHER, Onset:60 years & older Cardiovascular disease 19 MOTHER, Onset:60 years & older Colon cancer Completed stroke G8 BROTHER, Onset:50's - 60 (Brother from stroke) Hypertension 19 MOTHER, Onset:60 years & older Prostate cancer 19 FATHER, Onset:60 years & older Visual disorder 19 FATHER, Onset:60 years & older (Macular degeneration) Review of Systems Constitutional: No chills, No diaphoresis EENTM: No blurred vision, No double vision Respiratory: No cough, No dyspnea on exertion Cardiovascular: No chest pain, No palpitations Gastrointestinal: No abdominal pain, No nausea, No vomiting Genitourinary: No decreased output, No discharge Musculoskeletal: No back pain, No joint pain Skin: No change in color, No change in hair/nails Psychiatric/Neurological: Denies Anxiety, Denies Depressed, Denies Emotional Problems All Other Systems Reviewed Negative Unless Noted: Yes (Negative excepted noted.) Physical Exam Vital Signs Vital Signs - First Documented 02/22/21 20:38 Temp 35.9 Pulse 79 Resp 18 B/P (MAP) 134/87 (103) Pulse Ox 95 O2 Delivery Room Air Capillary Refill : Less Than 3 Seconds Height, Weight, BMI Height: 6'1.00" Weight: 251lbs. 9.0oz. [id number]; 174.51 BMI Method: General Appearance: No Apparent Distress, WD/WN HEENT: PERRL/EOMI, Normal ENT Inspection, Other (chin c sutures, no signs of infection) Neck: Normal Inspection, Non Tender, Supple Respiratory: Chest Non Tender, No Accessory Muscle Use, No Respiratory Distress Cardiovascular: Regular Rate, Rhythm, No JVD Gastrointestinal: Non Tender, Soft Rectal: Deferred Back: Normal Inspection, No CVA Tenderness Extremity: Normal Capillary Refill, Normal Inspection, Normal Range of Motion, Non Tender, No Calf Tenderness Neurologic/Psychiatric: Alert, Oriented x3, No Motor/Sensory Deficits, Normal Mood/Affect, predatory animal hunter II-XII Norm as Tested Skin: Normal Color, Warm/Dry Lymphatic: No Adenopathy Data Review Labs Laboratory Tests 02/22/21 21:55: White Blood Count 6.1, Red Blood Count 4.42, Hemoglobin 14.7, Hematocrit 43, Mean Corpuscular Volume 97, Mean Corpuscular Hemoglobin 33, Mean Corpuscular Hemoglobin Concent 34, Red Cell Distribution Width 12.6, Platelet Count 187, Mean Platelet Volume 9.6, Immature Granulocyte % (Auto) 0, Neutrophils (%) (Auto) 61, Lymphocytes (%) (Auto) 28, Monocytes (%) (Auto) 9, Eosinophils (%) (Auto) 2, Basophils (%) (Auto) 0, Neutrophils # (Auto) 3.8, Lymphocytes # (Auto) 1.7, Monocytes # (Auto) 0.6, Eosinophils # (Auto) 0.1, Basophils # (Auto) 0.0, Immature Granulocyte # (Auto) 0.0, Prothrombin Time 12.9, INR Comment 0.9, Sodium Level 139, Potassium Level 4.0, Chloride Level 106, Carbon Dioxide Level 21, Anion Gap 12, Blood Urea Nitrogen 14, Creatinine 0.86, Estimat Glomerular Filtration Rate > 60, BUN/Creatinine Ratio 16, Glucose Level 231H, Calcium Level 8.8, Corrected Calcium 8.9, Total Bilirubin 0.3, Aspartate Amino Transf (AST/SGOT) 19, Alanine Aminotransferase (ALT/SGPT) 18, Alkaline Phosphatase 76, Total Protein 6.6, Albumin 3.9 Assessment/Plan Assessment/Plan Admission Diagonsis Fall chin laceration abnormal ct head Admission Status: Observation Assessment/Plan Fall chin laceration abnormal ct head Patient had repeat CT of the head this morning which did not show any abnormality. Patient neurologically intact. Patient wanting to go home. Agree with patient going home. Patient will follow up in the emergency department to have sutures removed in approximately 1 week. Patient if has any issues or concerns he should be reevaluated at that time patient and agree with plan. Will DC home today. HARMAN GARCIA DO Feb 23, 2021 08:18
--- NOTE | 2021-02-23 11:35 | Discharge Inst-Simple/Standard ---
Discharge Inst-Standard Patient Instructions/Follow Up Plan of Care/Instructions/FU: Radha 2-3 weeks if needed. Follow up with your primary care physician in next 2 weeks. Have sutures removed in 1 week. Can be removed in emergency dept. Activity as Tolerated: Yes Discharge Diet: Regular Diet Other Inst to Patient Follow up Appt: Make appointment for 2-3 weeks if needed. Follow up with your primary care physician in next 2 weeks. Instructions: No lifting greater than 10 pounds. No strenuous activity. May shower in 24 hours, no tub bath or soaking. Use incentive spirometer at home as directed. No Smoking Skin/Wound Care: You have stitches, remove in emergency room in 1 week. Keep are clean and dry. Symptoms to Report: Appetite Changes, Extremity Discoloration, Numbness/Tingling, Swelling Increased, Bleeding Excessive, Eyesight Changes, Pain Increased, Urine Color Change, Constipation(Persistent), Fever over 101 degree F, Pain/Pressure in chest, Urinating Difficulty, Cough Up/Vomit Blood, Heart Beat Irreg/Pounding, Pain/Pressure in jaw, Vaginal Bleeding Increase, Cramps in feet or legs, Lightheadedness, Pain/Pressure in shoulder, Diarrhea(Persistent), Memory Changes Suddenly, Questions/Concerns, Weight gain consecutive days, Dizziness/Fainting, Nausea/Vomiting, Shortness of Breath, Weight gain over 2 pounds If questions or concerns contact your physician Or seek help at emergency department. HARMAN FELDER DO Feb 23, 2021 11:35
[2021-02-23] MEDS ORDERED: CYAN-41 PO (11:49)
[2021-02-23] MEDS ORDERED: SILD100T PO (11:49)
[2021-02-23] MEDS ORDERED: LISI10TA25 PO (11:49)
[2021-02-23] MEDS ORDERED: MULT-1136 PO (11:49)
[2021-02-23] MEDS ORDERED: GLIP10TA13 PO (11:49)
[2021-02-23] MEDS ORDERED: OMEG1CAP58 PO (11:49)
[2021-02-23] MEDS ORDERED: LUTE40CA PO (11:49)
[2021-02-23] MEDS ORDERED: CARV25TA PO (11:49)
[2021-02-23] MEDS ORDERED: CHOL100048 PO (11:49)
[2021-02-23] MEDS ORDERED: LORA10TA7 PO (11:49)
[2021-02-23] MEDS ORDERED: FAMO20TA5 PO (11:49)
[2021-02-23 12:09] VITALS: BP 163/87
== END 2021-02-23 12:50 | disposition home or self-care (01) ==
LOC: EDUNIT# 20:35 → ER 20:36 → 4TH 21:38
PROVIDERS: ADMIT Surgery; ATTEND Surgery
DX: S01.81XA Laceration without foreign body of other part of head, initial encounter (principal); R94.02 Abnormal brain scan; M19.90 Unspecified osteoarthritis, unspecified site; I25.10 Atherosclerotic heart disease of native coronary artery without angina pectoris; E78.5 Hyperlipidemia, unspecified; K21.9 Gastro-esophageal reflux disease without esophagitis; E11.9 Type 2 diabetes mellitus without complications; W18.30XA Fall on same level, unspecified, initial encounter; Z79.899 Other long term (current) drug therapy; Z79.891 Long term (current) use of opiate analgesic; Z79.84 Long term (current) use of oral hypoglycemic drugs; Z80.0 Family history of malignant neoplasm of digestive organs; Z82.3 Family history of stroke
CPT/HCPCS: 70450 ×2; 70486; 72125; 73080; 80053; 85025; 85610; 99284; G0378; 36415

== ENCOUNTER 2021-03-01 10:39 | Emergency (ER) | payer MEDICARE, OTHER ==
[~2021-03-01] VITALS: Ht 185.5 cm; Wt 93.0 kg
[~2021-03-01 10:39] MED LIST changes: +CARV25TA PO; +CHOL100048 PO; +CYAN-41 PO; +FAMO20TA5 PO; +LISI10TA25 PO; +LORA10TA7 PO; +LUTE40CA PO; +MULT-1136 PO; +OMEG1CAP58 PO; +SILD100T PO
[2021-03-01 10:49] VITALS: BP 137/82
== END 2021-03-01 10:56 | disposition home or self-care (01) ==
LOC: EDUNIT# 10:39 → ER 10:41
DX: Z48.02 Encounter for removal of sutures (principal)